=== PATIENT | male | born 1980 | race Caucasian/White ===

== ENCOUNTER 2018-05-14 03:25 | Emergency (ER) | payer OTHER ==
[~2018-05-14] VITALS: Ht 177.8 cm; Wt 81.8 kg
[2018-05-14 03:32] VITALS: Ht 177.8 cm; Wt 81.8 kg
[2018-05-14 04:48] LABS: APPEARANCE CLOUDY (CLEAR); BILIRUBIN NEGATIVE (NEGATIVE); COLOR YELLOW (YELLOW); GLUCOSE NEGATIVE (NEGATIVE); KETONE NEGATIVE (NEGATIVE); NITRITE NEGATIVE (NEGATIVE); PROTEIN NEGATIVE (NEGATIVE); SPECIFIC GRAVITY 1.025 (1.005-1.020); UROBILINOGEN NORMAL (NORMAL)
[2018-05-14 04:49] LABS: BACTERIA FEW /hpf (NONE SEEN); EPITHELIAL CELLS 0-5 /hpf (0-5); RED CELLS - URINE 0-5 /hpf (0-5)
[2018-05-14] MEDS ORDERED: FLAGYL500 MG PO (05:36)
[2018-05-14 05:43] VITALS: BP 135/89
== END 2018-05-14 05:43 | disposition home or self-care (01) ==
LOC: D.ER 03:25
PROVIDERS: Family Medicine
DX: Z20.2 Contact with and (suspected) exposure to infections with a predominantly sexual mode of transmission (principal); F17.200 Nicotine dependence, unspecified, uncomplicated

== ENCOUNTER 2019-07-18 15:29 | Emergency (ER) | payer SELFPAY ==
[~2019-07-18] VITALS: Ht 177.8 cm; Wt 86.4 kg
[~2019-07-18 15:29] MED LIST: FLAGYL500 MG PO
[2019-07-18 15:37] VITALS: Ht 177.8 cm; Wt 86.4 kg
[2019-07-18 16:59] LABS: BASOPHILS 0.3 % (0-2); EOSINOPHILS 3.4 % (0-7); HEMATOCRIT 43.4 % (42.0-54.0); HEMOGLOBIN 15.2 g/dL (13.5-17.5); IMMATURE GRANULOCYTES 0.1 % (0-5); MCH 29.8 pg (26.0-34.0); MCV 85.1 fL (80.0-100.0); MEAN PLATELET VOLUME 10.1 fL (7.4-10.4); MONOCYTES 8.5 % (2-11); NEUTROPHILS 59.7 % (40-80); RDW 12.8 % (11.5-14.5); WBC 6.7 10x3/uL (4.8-10.8)
[2019-07-18 17:03] LABS: PLATELET COUNT 277 10x3/uL (130-400)
[2019-07-18 17:09] LABS: CALC OSMOLALITY 277 mosm/kg (275-300); CALCIUM 9.1 mg/dL (8.5-10.1); CARBON DIOXIDE 27.7 mmol/L (21.0-32.0); CHLORIDE - SERUM 103 mmol/L (98-107); GLUCOSE 92 mg/dL (74-106); SODIUM 139 mmol/L (136-145); UREA NITROGEN 12 mg/dL (7-18); eGFR NON AFRICAN AMERICAN 88 mL/min (90-120)
[2019-07-18 17:24] LABS: ALKALINE PHOSPHATASE 74 U/L (46-116); ALT (SGPT) 52 U/L (10-68); BILIRUBIN - TOTAL 0.72 mg/dL (0.2-1.3); CREATINE KINASE 101 UL (21-232); PROTEIN - SERUM 7.4 g/dL (6.4-8.2); TROPONIN-I < 0.017 ng/mL (0.000-0.060)
[2019-07-18] MEDS ORDERED: MEDROL DOSE PACK4 MG PO (17:31)
[2019-07-18] MEDS ORDERED: LEVAQUIN750 MG PO (17:31)
[2019-07-18] MEDS ORDERED: CIALIS10 MG PO (17:36)
[2019-07-18 17:48] VITALS: BP 128/80
== END 2019-07-18 17:49 | disposition home or self-care (01) ==
LOC: D.ER 15:29
PROVIDERS: Emergency Medicine
DX: R09.1 Pleurisy (principal); J18.9 Pneumonia, unspecified organism; Z72.0 Tobacco use

== ENCOUNTER 2020-03-14 02:19 | Emergency (ER) | payer SELFPAY ==
[~2020-03-14] VITALS: Ht 177.8 cm; Wt 84.1 kg
[~2020-03-14 02:19] MED LIST changes: +CIALIS10 MG PO; +LEVAQUIN750 MG PO; +MEDROL DOSE PACK4 MG PO
[2020-03-14 02:23] VITALS: Ht 177.8 cm; Wt 84.1 kg
[2020-03-14] MEDS ORDERED: HYDROCODON-ACE1 EAC2 PO (02:33)
[2020-03-14] MEDS ORDERED: AMOXICILLIN875 MG PO (02:33)
[2020-03-14 03:00] VITALS: BP 141/89
== END 2020-03-14 03:00 | disposition home or self-care (01) ==
LOC: D.ER 02:19
DX: K02.9 Dental caries, unspecified (principal); K04.7 Periapical abscess without sinus; K08.89 Other specified disorders of teeth and supporting structures; Z72.0 Tobacco use

== ENCOUNTER 2020-10-31 13:39 | Emergency (ER) | payer OTHER ==
[~2020-10-31] VITALS: Ht 177.8 cm; Wt 84.1 kg
[~2020-10-31 13:39] MED LIST changes: +AMOXICILLIN875 MG PO; +HYDROCODON-ACE1 EAC2 PO
[2020-10-31 13:42] VITALS: Ht 177.8 cm; Wt 84.1 kg
[2020-10-31 14:16] LABS: BILIRUBIN NEGATIVE (NEGATIVE); KETONE NEGATIVE (NEGATIVE); NITRITE NEGATIVE (NEGATIVE); UROBILINOGEN NORMAL mg/dL (< 2)
[2020-10-31 14:17] LABS: BACTERIA FEW HPF (NONE SEEN); SQUAMOUS EPITHELIAL RARE HPF (0-4); WHITE CELLS - URINE 25-50 HPF (0-1)
[2020-10-31] MEDS ORDERED: OMNICEF300 MG PO (14:24)
[2020-10-31 14:37] VITALS: BP 127/83
== END 2020-10-31 14:38 | disposition home or self-care (01) ==
LOC: D.ER 13:39
PROVIDERS: Family Medicine
DX: A64 Unspecified sexually transmitted disease (principal); N39.0 Urinary tract infection, site not specified; I10 Essential (primary) hypertension